=== PATIENT | female | born 1935 | race Caucasian/White ===

== ENCOUNTER 2021-04-06 12:12 | Emergency (ER) | payer BC ==
[~2021-04-06] VITALS: Ht 165.1 cm; Wt 71.7 kg
[2021-04-06 12:18] VITALS: BP_SYST 119
--- NOTE | 2021-04-06 12:20 | NUR ---
Patient to ER bed 03 to gown for evaluation. Side rails up..
--- NOTE | 2021-04-06 12:29 | NUR ---
Dr Bernard evaluating patient at bedside
--- NOTE | 2021-04-06 12:29 | NUR ---
ER at bedside examining patient.
--- NOTE | 2021-04-06 12:45 | NUR ---
Pt. bib granddaughter with c/o abd pain 11/19 since thursday, pt. states initially had N/V/D but that resolved thursday, but d/t pain has had very minimal PO intake and is very weak, unable to provide urine at this time.
[2021-04-06 12:50] LABS: BASOPHILS % (AUTO) 0.2 % (0.0-2.0); EOSINOPHILS # (AUTO) 0.1 K/uL (0.0-0.4); EOSINOPHILS % (AUTO) 0.7 % (0.0-4.0); HEMATOCRIT 33.7 % (36-48); HEMOGLOBIN 11.7 g/dL (12.0-16.0); LYMPHOCYTES # (AUTO) 0.9 K/uL (1.0-5.5); LYMPHOCYTES % (AUTO) 9.3 % (20.5-51.5); MEAN CORPUSCULAR HEMOGLOBIN 31 pg (27-31); MEAN CORPUSCULAR HGB CONC 35 % (32-36); MEAN CORPUSCULAR VOLUME 89 fL (79.0-98.0); MONOCYTES % (AUTO) 10.3 % (1.7-9.3); NEUTROPHILS # (AUTO) 7.8 K/uL (1.8-7.7); NEUTROPHILS % (AUTO) 79.5 % (40.0-70.0); PLATELET COUNT (AUTO) 293 K/uL (130-430); RED CELL DISTRIBUTION WIDTH 13.2 % (9.0-15.0); WHITE BLOOD COUNT (AUTO) 9.9 K/uL (4.8-10.8)
--- NOTE | 2021-04-06 12:59 | NUR ---
Patient transported to radiology via wheelchair, accompanied by staff.
[2021-04-06 13:01] LABS: ANION GAP 9 (5-15); CALCIUM 9.5 mg/dL (8.4-11.0); CHLORIDE 94 mmol/L (98-107); CREATININE 1.39 mg/dL (0.55-1.30); GLUCOSE 162 mg/dL (70-99); POTASSIUM 3.6 mmol/L (3.5-5.1); SODIUM SERUM 129 mmol/L (136-145); UREA NITROGEN, BLOOD 31 mg/dL (8-21)
[2021-04-06 13:04] LABS: INR 0.9 (0.8-1.2)
[2021-04-06 13:05] LABS: ALANINE AMINOTRANSFERASE 19 U/L (12-78); ALBUMIN 3.1 g/dL (3.4-4.8); AMYLASE 30 U/L (0-100); ASPARTATE AMINOTRANSFERASE 14 U/L (10-37); C-REACTIVE PROTEIN QUANT 13.3 mg/dL (0-0.5); LACTATE DEHYDROGENASE 116 U/L (81-234); LIPASE 128 U/L (73-393); TOTAL BILIRUBIN 0.5 mg/dL (0.0-1.0)
--- NOTE | 2021-04-06 13:10 | NUR ---
Pt back from CT. Family at bedside.
[2021-04-06 14:01] VITALS: BP_SYST 113
--- NOTE | 2021-04-06 14:01 | NUR ---
Patient given written and verbal discharge instructions and verbalizes understanding. ER Dr. mccoy discussed with patient the results and treatment provided. Patient in stable condition. ID arm band removed. Rx of [place], Motrin and Zofran given. Patient educated on pain management and to follow up with PMD. Pain Scale 3. Opportunity for questions provided and answered. Medication side effect fact sheet provided.
== END 2021-04-06 14:01 | disposition home or self-care (01) ==
LOC: SED 12:12
DX: K80.50 Calculus of bile duct without cholangitis or cholecystitis without obstruction (principal)
CPT/HCPCS: 36415; 76376; 80053; 82150; 83615; 83690; 84484; 85025; 85610-TC; 85730-TC; 86140; 99284

== ENCOUNTER 2024-03-09 09:20 | Day surgery (SDC) | payer BC ==
[~2024-03-09] VITALS: Ht 165.1 cm; Wt 72.6 kg
[~2024-03-09 09:20] MED LIST: CEFAZOLIN SOD 2 GM in D5W 50 ML IV ONE; CELECOXIB 100 MG CAPSULE PO ONE
[2024-03-09] MEDS ORDERED: ACETAMINOPHEN 500 MG TABLET ONE (10:14)
[2024-03-09] MEDS ORDERED: oxyCODONE HCL 10 MG TAB.ER.12H PO ONE (10:16)
[2024-03-09] MEDS ORDERED: GABAPENTIN 300 MG CAPSULE ONE (10:16)
[2024-03-09] MEDS: CELECOXIB 100 MG CAPSULE ONE (10:19)
[2024-03-09] MEDS: GABAPENTIN 300 MG CAPSULE PO ONE (10:19)
[2024-03-09] MEDS: ACETAMINOPHEN 500 MG TABLET PO ONE (10:19)
[2024-03-09] MEDS ORDERED: SCOPOLAMINE HYDROBROMIDE 1 MG PATCH .72 H (TRANSDERM-SCOP) TD ONE (10:24)
[2024-03-09] MEDS: SCOPOLAMINE HYDROBROMIDE 1 MG PATCH .72 H (TRANSDERM-SCOP) TD ONE (10:30)
[2024-03-09] MEDS ORDERED: traMADol HCL HCL 50 MG TABLET (ULTRAM) PO PRN (11:00)
[2024-03-09] MEDS ORDERED: LORATADINE 10 MG TABLET PO PRN (11:00)
[2024-03-09] MEDS ORDERED: HYDROmorphone 1 MG/ML INJ. CARTRIDGE IVP PRN ×3 (11:00→14:45)
[2024-03-09] MEDS ORDERED: oxyCODONE HCL 5 MG TABLET PO PRN (11:00)
[2024-03-09] MEDS ORDERED: ONDANSETRON HCL 4 MG/2 ML VIAL IVP PRN ×2 (11:45→14:45)
[2024-03-09] MEDS: oxyCODONE HCL 10 MG TAB.ER.12H PO ONE (12:00)
[2024-03-09] MEDS ORDERED: MIDAZOLAM HCL 2 MG/2 ML VIAL (VERSED) ONE ×2 (12:34→13:35)
[2024-03-09] MEDS ORDERED: TRANEXAMIC ACID 1,000 MG/10 ML VIAL ONE (13:35)
[2024-03-09] MEDS ORDERED: BUPIVACAINE /EPINEPHRINE/PF 0.25% 30 ML VIAL ONE (13:35)
[2024-03-09] MEDS ORDERED: LR 1,000 ML IV.SOLN IV ONE (13:35)
[2024-03-09] MEDS ORDERED: WATER FOR IRRIGATION,STERILE 1,000 ML IRRIG.SOLN IR ONE (13:35)
[2024-03-09] MEDS ORDERED: VANCOMYCIN HCL 1000 MG/VIAL IV ONE (13:35)
[2024-03-09] MEDS ORDERED: METOCLOPRAMIDE HCL 10 MG/2 ML VIAL ONE (13:35)
[2024-03-09] MEDS ORDERED: BUPIVACAINE /DEX PF 0.75% SPINAL 2 ML AMP INJ ONE (13:35)
[2024-03-09] MEDS ORDERED: NS IRRIG SOLN 1000 ML IR ONE (13:35)
[2024-03-09] MEDS ORDERED: ONDANSETRON HCL 4 MG/2 ML VIAL ONE (13:35)
[2024-03-09] MEDS ORDERED: LR 1,000 ML IV SCH (14:45)
[2024-03-09] MEDS ORDERED: HYDROmorphone 2 MG/ML VIAL IVP PRN (14:45)
[2024-03-09] MEDS ORDERED: BISACODYL 10 MG/SUPPOSITORY RC PRN (16:15)
[2024-03-09] MEDS ORDERED: LACTULOSE 20 GM/30 ML UDC PO PRN (16:15)
[2024-03-09] MEDS ORDERED: METOCLOPRAMIDE HCL 10 MG/2 ML VIAL IVP PRN (16:15)
[2024-03-09] MEDS ORDERED: DIPHENHYDRAMINE HCL 25 MG CAPSULE PO PRN (16:15)
[2024-03-09] MEDS: TAMSULOSIN HCL 0.4 MG CAP PO ONE (16:35)
[2024-03-09] MEDS: HYDROmorphone 1 MG/ML INJ. CARTRIDGE IVP PRN (16:43)
[2024-03-09] MEDS ORDERED: HYDROmorphone 1 MG/ML INJ. CARTRIDGE ONE (16:44)
[2024-03-09] MEDS ORDERED: BISO5TAB15 PO (18:14)
[2024-03-09] MEDS ORDERED: LOSA-415 PO (18:14)
[2024-03-09] MEDS ORDERED: SIMV-345 PO (18:14)
[2024-03-09] MEDS ORDERED: CLOP75TA32 PO (18:14)
[2024-03-09 18:51] VITALS: BP_SYST 167; PULSE 71; RESP 18; TEMP 97; O2SAT 95
[2024-03-09 18:59] VITALS: BP_SYST 184
[2024-03-09 20:00] VITALS: O2SAT 96
[2024-03-09 20:15] VITALS: BP_SYST 150; PULSE 60; RESP 18; TEMP 96.6; O2SAT 96
[2024-03-09 20:45] VITALS: BP_SYST 128; PULSE 62; RESP 18; TEMP 96.3; O2SAT 97
[2024-03-09] MEDS: SENNOSIDES/DOCUSATE SODIUM 1 TAB TABLET(SENOKOT-S) PO SCH (20:55)
[2024-03-09] MEDS: KETOROLAC TROMETHAMINE 10 MG TABLET (TORADOL) PO SCH (22:00)
[2024-03-10] VITALS (7 sets, daily range): BP systolic 138–146; PULSE 59–69; RESP 15–18; TEMP 97.1–98.4; O2SAT 95
[2024-03-10] MEDS: ceFAZolin SODIUM 2 GM in D5W 50 ML IV SCH ×2 (01:16→09:14)
[2024-03-10] MEDS: CEFAZOLIN 2 GM IVPB PREMIX 50 ML IV ONE (01:26)
[2024-03-10] MEDS: oxyCODONE HCL 5 MG TABLET PO PRN (01:41)
[2024-03-10] MEDS: ACETAMINOPHEN 500 MG TABLET PO SCH (05:23)
[2024-03-10] MEDS: KETOROLAC TROMETHAMINE 15 MG VIAL ONE (05:35)
[2024-03-10 08:39] LABS: ALANINE AMINOTRANSFERASE 13 U/L (12-78); ALBUMIN 3.2 g/dL (3.4-4.8); ANION GAP 5 (5-15); ASPARTATE AMINOTRANSFERASE 18 U/L (10-37); CALCIUM 8.9 mg/dL (8.4-11.0); CARBON DIOXIDE 29 mmol/L (23-29); CHLORIDE 94 mmol/L (98-107); CREATININE 0.66 mg/dL (0.55-1.30); GLUCOSE 121 mg/dL (74-106); POTASSIUM 4.4 mmol/L (3.5-5.1); SODIUM SERUM 128 mmol/L (136-145); TOTAL BILIRUBIN 0.6 mg/dL (0.0-1.0); UREA NITROGEN, BLOOD 8 mg/dL (8-21)
[2024-03-10] MEDS: TAMSULOSIN HCL 0.4 MG CAP PO SCH (08:54)
[2024-03-10] MEDS: KETOROLAC TROMETHAMINE 10 MG TABLET (TORADOL) PO SCH (08:54)
[2024-03-10] MEDS ORDERED: BISOPROLOL FUMARATE 5 MG TABLET PO SCH (09:00)
[2024-03-10 09:05] LABS: BASOPHILS % (AUTO) 0.4 % (0.0-2.0); EOSINOPHILS # (AUTO) 0.1 K/uL (0.0-0.4); HEMATOCRIT 33.4 % (36-48); HEMOGLOBIN 11.3 g/dL (12.0-16.0); LYMPHOCYTES # (AUTO) 0.7 K/uL (1.0-5.5); LYMPHOCYTES % (AUTO) 11.3 % (20.5-51.5); MEAN CORPUSCULAR HEMOGLOBIN 32 pg (27-31); MEAN CORPUSCULAR HGB CONC 34 % (32-36); MEAN CORPUSCULAR VOLUME 93 fL (79.0-98.0); MONOCYTES # (AUTO) 0.5 K/uL (0.0-1.0); MONOCYTES % (AUTO) 7.6 % (1.7-9.3); NEUTROPHILS # (AUTO) 4.9 K/uL (1.8-7.7); NEUTROPHILS % (AUTO) 79.7 % (40.0-70.0); PLATELET COUNT (AUTO) 204 K/uL (130-430); RED BLOOD CELL COUNT(AUTO) 3.59 MIL/uL (4.2-6.2); RED CELL DISTRIBUTION WIDTH 12.6 % (9.0-15.0); WHITE BLOOD COUNT (AUTO) 6.1 K/uL (4.8-10.8)
[2024-03-10] MEDS: SIMVASTATIN 40 MG TABLET PO SCH (09:27)
[2024-03-10] MEDS: ATENOLOL 50 MG TABLET (TENORMIN) PO ONE (11:55)
[2024-03-10] MEDS: CELECOXIB 200 MG CAPSULE PO SCH (11:55)
[2024-03-10] MEDS: CLOPIDOGREL BISULFATE 75 MG TABLET PO ONE (13:26)
[2024-03-10] MEDS: PANTOPRAZOLE SODIUM 40 MG TAB PO ONE (13:55)
[2024-03-10 14:38] LABS: ANION GAP 8 (5-15); CALCIUM 8.6 mg/dL (8.4-11.0); CARBON DIOXIDE 27 mmol/L (23-29); CHLORIDE 92 mmol/L (98-107); CREATININE 0.71 mg/dL (0.55-1.30); GLUCOSE 130 mg/dL (74-106); POTASSIUM 3.8 mmol/L (3.5-5.1); SODIUM SERUM 127 mmol/L (136-145); UREA NITROGEN, BLOOD 9 mg/dL (8-21)
[2024-03-10] MEDS: NACL 0.9% 1,000 ML IV SCH (17:13)
[2024-03-11] MEDS ORDERED: SODIUM CHLORIDE 1,000 MG TABLET PO SCH
[2024-03-11 00:09] VITALS: BP_SYST 132; PULSE 64; RESP 17; TEMP 97.9; O2SAT 96
[2024-03-11 06:50] LABS: ANION GAP 6 (5-15); CALCIUM 8.7 mg/dL (8.4-11.0); CARBON DIOXIDE 27 mmol/L (23-29); CHLORIDE 96 mmol/L (98-107); CREATININE 0.56 mg/dL (0.55-1.30); GLUCOSE 108 mg/dL (74-106); POTASSIUM 4.1 mmol/L (3.5-5.1); SODIUM SERUM 129 mmol/L (136-145); UREA NITROGEN, BLOOD 7 mg/dL (8-21)
[2024-03-11 07:58] VITALS: BP_SYST 147; PULSE 63; RESP 18; TEMP 98; O2SAT 93
[2024-03-11] MEDS: CLOPIDOGREL BISULFATE 75 MG TABLET PO ONE (08:36)
[2024-03-11] MEDS: CLOPIDOGREL BISULFATE 75 MG TABLET PO SCH (08:37)
[2024-03-11] MEDS: ATENOLOL 50 MG TABLET (TENORMIN) PO SCH (08:39)
[2024-03-11] MEDS ORDERED: ATENOLOL 50 MG TABLET (TENORMIN) PO SCH (09:00)
[2024-03-11] MEDS ORDERED: SODIUM (09:18)
[2024-03-11] MEDS ORDERED: TROS20TA2 PO (09:18)
[2024-03-11] MEDS ORDERED: SODI1TAB3 PO (09:19)
[2024-03-11 11:20] VITALS: BP_SYST 159; PULSE 59; RESP 16; TEMP 97.2; O2SAT 94
[2024-03-11 12:55] VITALS: BP_SYST 153; PULSE 62; RESP 16; TEMP 98; O2SAT 96
== END 2024-03-11 14:45 | disposition home or self-care (01) ==
LOC: SDS 09:20 → SMU 09:22 → SDS 03-11 14:45
PROVIDERS: ATTEND Student in an Organized Health Care Education/Training Program
DX: M17.12 Unilateral primary osteoarthritis, left knee (principal); M25.762 Osteophyte, left knee; M25.562 Pain in left knee; I10 Essential (primary) hypertension; E78.5 Hyperlipidemia, unspecified; K21.9 Gastro-esophageal reflux disease without esophagitis; I25.2 Old myocardial infarction; Z90.710 Acquired absence of both cervix and uterus; Z79.899 Other long term (current) drug therapy; Z85.038 Personal history of other malignant neoplasm of large intestine
CPT/HCPCS: 87081; 27447; 97162; 64447; 80053; 85025; 36415; 73560; 97530 ×3; 97116 ×3; 88305; 88311; 97110 ×2; 96379 ×2; J3490 ×3; J0690 ×2; J2765; J3465; J2405; J3370; J1170; J7060 ×3; J7120; C1776 ×3; C1713 ×2; J0696; S2900; 80048; J1885

== ENCOUNTER 2024-04-13 12:29 | Emergency (ER) | payer BC ==
[~2024-04-13] VITALS: Ht 165.1 cm; Wt 72.6 kg
[~2024-04-13 12:29] MED LIST changes: +BISO5TAB15 PO; -CEFAZOLIN SOD 2 GM in D5W 50 ML IV ONE; -CELECOXIB 100 MG CAPSULE PO ONE; +CLOP75TA32 PO; +LOSA-415 PO; +SIMV-345 PO; +SODI1TAB3 PO; +SODIUM; +TROS20TA2 PO
[2024-04-13 12:30] VITALS: BP_SYST 147; PULSE 60; RESP 18; TEMP 97.1; O2SAT 98
[2024-04-13] MEDS ORDERED: BACITRACIN 1 GM OINT TP ONE (14:27)
[2024-04-13] MEDS: DIPHTH,PERTUSS(ACELL),TET VAC 0.5 ML VIAL (Tdap) I.M. ONE (14:50)
[2024-04-13] MEDS: BACITRACIN 1 GM OINT TP ONE (14:58)
[2024-04-13 15:17] VITALS: BP_SYST 168; PULSE 60; RESP 18; TEMP 98.5; O2SAT 96
== END 2024-04-13 15:10 | disposition home or self-care (01) ==
LOC: SED 12:29
DX: S01.112A Laceration without foreign body of left eyelid and periocular area, initial encounter (principal); S09.90XA Unspecified injury of head, initial encounter; I10 Essential (primary) hypertension; E78.00 Pure hypercholesterolemia, unspecified; W01.0XXA Fall on same level from slipping, tripping and stumbling without subsequent striking against object, initial encounter; Y93.89 Activity, other specified; Y92.89 Other specified places as the place of occurrence of the external cause; Y99.8 Other external cause status
CPT/HCPCS: 70450-TC; 90715; 99285